=== PATIENT | male | born 1965 | race Caucasian/White ===

== ENCOUNTER 2018-09-29 17:52 | Emergency (ER) | payer MEDICAID, SELFPAY ==
[2018-09-29 17:53] VITALS: BP 153/103; PULSE 117; RESP 17; TEMP 36.9; O2SAT 94; BMI 26.4
--- NOTE | 2018-09-29 18:15 | ED.VISSUMM ---
- ER Visit Summary Date of Service: 09/29/18 Chief Complaint: Difficulty urinating History of Present Illness: The patient is a 52 M had nasal surgery done today in [place] at the [facility]. He was doing well but has had trouble urinating since that time. He was under general anesthesia denies having a Hinton catheter. States he has trouble initiating starting a good stream. He denies any dysuria, hematuria or prior history. Physical Examination: Well-appearing middle-age male. No acute distress. Vital signs stable afebrile. HEENT exam bandage on his nose with some mild bruising from surgery earlier today. Lungs there to auscultation bilaterally. Heart regular rhythm no murmur. Abdomen soft. Distended and tender suprapubic area consistent with a bladder distention. No peritoneal signs. Extremities moves all 4. No edema. Neurologically is awake and alert with no focal motor deficits. Test Results: Bladder scan per nursing shows greater than 200 cc of urine. Nurse placed a Hinton catheter without difficulty. And patient had 1 L of clear yellow urine output. Does not look infected. No gross hematuria. He will be discharging home with the Hinton in place to follow-up with either urology or his primary care physician. Emergency Department Course and Treatment: Urinary retention status post general anesthesia will receive a Hinton catheter. Treatment Plan: [] Disposition: Discharge Impression: Acute urinary retention Status post nasal surgery underwent general anesthesia This note was generated with Context app dictation software. It may contain incorrect words, spelling, and punctuation that were not noted in review of the chart prior to signing ED Disposition - Plan for ED Patient: Referrals: New Zendejas MD [Primary Care Provider] -
--- NOTE | 2018-09-29 19:15 | ED.DEP ---
ED Disposition - Plan for ED Patient: Disposition: Home or Assisted Living Instructions: ED Retention Urinary Male Referrals: Alex Ruelas MD [STAFF PHYSICIAN] - As soon as possible Additional Instructions: Follow-up with either your doctor or the urologist that I referred you to to have the Hinton catheter removed in the next few days. Return call for any problems. Empty the catheter whenever three quarters full.
[2018-09-29 19:41] VITALS: BP 139/78; PULSE 81; RESP 20; O2SAT 99
--- NOTE | 2018-09-29 19:42 | ED.RN ---
THIS NURSE REVIEWED D/C INSTRUCTIONS WITH PT. PT VERBALIZED UNDERSTANDING OF INSTRUCTIONS. LEG BAG PLACED. PT DENIES FURTHER NEEDS OR QUESTIONS AT THIS TIME.
== END 2018-09-29 19:43 | disposition home or self-care (01) ==
PROVIDERS: Emergency Provider Emergency Medicine; Family Provider Family Medicine; PCP Family Medicine
DX: R33.0 Drug induced retention of urine (principal); T41.45XA Adverse effect of unspecified anesthetic, initial encounter; Z98.890 Other specified postprocedural states; J45.909 Unspecified asthma, uncomplicated; K21.9 Gastro-esophageal reflux disease without esophagitis
CPT/HCPCS: 51702; 99283